=== PATIENT | female | born 1995 | race Hispanic/Latino ===

== ENCOUNTER 2021-02-28 12:10 | Emergency (ER) | payer OTHER, SELFPAY ==
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
[2021-02-28 12:24] VITALS: BP 118/78; PULSE 70; RESP 16; TEMP 36.8; O2SAT 100
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
== END 2021-02-28 14:25 | disposition home or self-care (01) ==
PROVIDERS: Emergency Provider Nurse Practitioner
DX: S80.01XA Contusion of right knee, initial encounter (principal); S16.1XXA Strain of muscle, fascia and tendon at neck level, initial encounter; V49.40XA Driver injured in collision with unspecified motor vehicles in traffic accident, initial encounter; J45.909 Unspecified asthma, uncomplicated
CPT/HCPCS: 73564; 99213; G0463